=== PATIENT | female | born 1970 | race Caucasian/White ===

== ENCOUNTER 2016-09-18 10:45 | Outpatient (CLI) | payer OTHER | END 2016-09-18 17:27 | disposition home or self-care (01) | LOC: SMA 10:45 | PROVIDERS: ATTEND Family Medicine | DX: Z12.31 Encounter for screening mammogram for malignant neoplasm of breast (principal) | CPT/HCPCS: G0202 ==

== ENCOUNTER 2016-09-23 08:57 | Outpatient (CLI) | payer OTHER | END 2016-09-23 18:38 | disposition home or self-care (01) | LOC: SMA 08:57 | PROVIDERS: ATTEND Family Medicine | DX: R92.8 Other abnormal and inconclusive findings on diagnostic imaging of breast (principal) | CPT/HCPCS: 76642; G0206 ==

== ENCOUNTER 2017-03-19 08:54 | Outpatient (CLI) | payer OTHER | END 2017-03-19 19:53 | disposition home or self-care (01) | LOC: SMA 08:54 | PROVIDERS: ATTEND Family Medicine | DX: N63.10 Unspecified lump in the right breast, unspecified quadrant (principal) | CPT/HCPCS: 77065 ==

== ENCOUNTER 2017-11-04 09:28 | Outpatient (CLI) | payer OTHER | END 2017-11-04 18:20 | disposition home or self-care (01) | LOC: SMA 09:28 | PROVIDERS: ATTEND Family Medicine | DX: R92.8 Other abnormal and inconclusive findings on diagnostic imaging of breast (principal) | CPT/HCPCS: 76642; 77066 ==

== ENCOUNTER 2018-05-30 13:39 | Outpatient (CLI) | payer OTHER | END 2018-05-30 21:19 | disposition home or self-care (01) | LOC: SMA 13:39 | PROVIDERS: ATTEND Family Medicine | DX: R92.8 Other abnormal and inconclusive findings on diagnostic imaging of breast (principal) | CPT/HCPCS: 76642; 77066 ==

== ENCOUNTER 2019-08-24 09:11 | Outpatient (CLI) | payer OTHER | END 2019-08-24 21:07 | disposition home or self-care (01) | LOC: SMA 09:11 | PROVIDERS: ATTEND Family Medicine | DX: Z12.31 Encounter for screening mammogram for malignant neoplasm of breast (principal); N64.89 Other specified disorders of breast | CPT/HCPCS: 77067 ==

== ENCOUNTER 2021-01-21 09:15 | Outpatient (CLI) | payer OTHER | END 2021-01-21 19:13 | disposition home or self-care (01) | LOC: SMA 09:15 | PROVIDERS: ATTEND Family Medicine | DX: Z12.31 Encounter for screening mammogram for malignant neoplasm of breast (principal) | CPT/HCPCS: 77067 ==

== ENCOUNTER 2023-08-27 08:57 | Outpatient (CLI) | payer BC, OTHER | END 2023-08-27 18:58 | disposition home or self-care (01) | LOC: SMA 08:57 | PROVIDERS: ATTEND Nurse Practitioner Family | DX: R92.313 Mammographic fatty tissue density, bilateral breasts (principal); N64.4 Mastodynia | CPT/HCPCS: 76642; 77066 ==